=== PATIENT | male | born 1990 | race American Indian/Alaskan Native ===

== ENCOUNTER 2016-12-04 20:40 | Emergency (ER) | payer SELFPAY ==
[2016-12-04 21:13] VITALS: PULSE 84; RESP 18; TEMP 98; O2SAT 100
--- NOTE | 2016-12-04 21:43 | ED PDOC ---
HPI: Hypertension/Hypotension Time Seen by Provider: 12/04/16 21:18 Chief Complaint (Nursing): High Blood Pressure Chief Complaint (Provider): High Blood Pressure History Per: Patient History/Exam Limitations: no limitations Onset/Duration Of Symptoms: Days (noted today) Current Symptoms Are (Timing): Still Present Quality Of Symptoms: Asymptomatic Additional Complaint(s): Thompson Londono is a 26 year old male, with a past medical history inclusive of HTN, who presents to the ED on 12/04/16 for the evaluation of elevated blood pressure that had been noted during a routine Clinic visit today where it had been recorded as >200mmHg systolic. Patient is asymptomatic at present and explicitly denies headache, chest pain, shortness of breath or abdominal pain. He reports a strong history of HTN on his father's side and that he had previously taken both Norvasc and Hydrochlorothiozide as a teenager, which he further admits to self-discontinuing secondary to experienced side-effects. PMD: Clinic Past Medical History Reviewed: Historical Data, Nursing Documentation, Vital Signs Vital Signs: Last Vital Signs Temp 98.0 F 12/04/16 21:09 Pulse 84 12/04/16 21:09 Resp 18 12/04/16 21:09 BP 182/119 H 12/04/16 21:09 Pulse Ox 100 12/04/16 21:09 - Medical History PMH: HTN - Surgical History Surgical History: No Surg Hx - Family History Family History: States: Hypertension (strong on father's side) - Social History Current smoker - smoking cessation education provided: No Alcohol: None Drugs: Denies - Immunization History Hx Tetanus Toxoid Vaccination: No Hx Influenza Vaccination: No Hx Pneumococcal Vaccination: No - Home Medications Home Medications: Ambulatory Orders Medication Instructions Recorded Doxycycline [Adoxa] 100 mg PO BID #14 tab 05/20/15 Griseofulvin Microsize [Grifulvin 500 mg PO DAILY #60 tab 05/20/15 V] Hydrochlorothiazide 12.5 mg PO DAILY #30 cap 05/20/15 amLODIPine [Norvasc] 5 mg PO DAILY #30 tab 12/04/16 hydroCHLOROthiazide [Hydrodiuril] 25 mg PO DAILY #30 tab 12/04/16 - Allergies Allergies/Adverse Reactions: Allergies Allergy/AdvReac Type Severity Reaction Status Date / Time No Known Allergies Allergy Verified 05/20/15 13:44 Review of Systems ROS Statement: Except As Marked, All Systems Reviewed And Found Negative Cardiovascular: Positive for: Other (elevated blood pressure). Negative for: Chest Pain Respiratory: Negative for: Shortness of Breath Gastrointestinal: Negative for: Abdominal Pain Neurological: Negative for: Headache Physical Exam - Reviewed Nursing Documentation Reviewed: Yes Vital Signs Reviewed: Yes - Physical Exam Appears: Positive for: Non-toxic, No Acute Distress Head Exam: Positive for: ATRAUMATIC, NORMOCEPHALIC Skin: Positive for: Normal Color, Warm, Dry Eye Exam: Positive for: Normal appearance, PERRL Neck: Positive for: Normal, Painless ROM, Supple Cardiovascular/Chest: Positive for: Regular Rate, Rhythm. Negative for: Murmur Respiratory: Positive for: Normal Breath Sounds. Negative for: Respiratory Distress Gastrointestinal/Abdominal: Positive for: Normal Exam, Soft. Negative for: Tenderness Back: Positive for: Normal Inspection Neurologic/Psych: Positive for: Alert, Oriented - Laboratory Results Result Diagrams: 12/04/16 21:51 12/04/16 21:38 - ECG O2 Sat by Pulse Oximetry: 100 (RA) Pulse Ox Interpretation: Normal Medical Decision Making Medical Decision Makin:18 Initial Impression: elevated blood pressure; will r/o end organ damage and re- start patient on blood pressure medication regimen Initial Plan: * EKG * Labs * Troponin I * Udip * Reevaluation 2250: Pt. remains asymptomatic, talked in length about need for proper BP control, prescribed pt. norvasc and HCTZ, told to check BP tomorrow and keep diary. Told to return for CP, SOB, HERNANDEZ, weakness, or other concerning symptoms and to f/u at [facility] this week for checkup. Scribe Attestation: Documented by Emerald Kumar, acting as a scribe for Hosea Wiseman MD. Provider Scribe Attestation: All medical record entries made by the Scribe were at my direction and personally dictated by me. I have reviewed the chart and agree that the record accurately reflects my personal performance of the history, physical exam, medical decision making, and the department course for this patient. I have also personally directed, reviewed, and agree with the discharge instructions and disposition. Disposition - Clinical Impression Clinical Impression: Hypertension - Disposition Referrals: [facility] [Outside] Disposition Time: 22:51 Condition: STABLE Additional Instructions: Please return to the ER if you're BP is not controlled with the medications prescribed. Be on the lookout for concerning symptoms such as severe headache, chest pain, shortness of breath, or other concerning symptoms. Prescriptions: amLODIPine [Norvasc] 5 mg PO DAILY #30 tab hydroCHLOROthiazide [Hydrodiuril] 25 mg PO DAILY #30 tab Instructions: Hypertension (ED), Hypertensive Crisis (ED)
[2016-12-04 21:55] LABS: BASO # 0.1 K/uL (0.0-0.2); BASO % 1.3 % (0.0-2.0); EOS % 0.6 % (0.0-4.0); HEMATOCRIT 39.6 % (35.0-51.0); LYMPH # 2.9 K/uL (1.0-4.3); LYMPH % 36.3 % (20.0-40.0); MEAN CORPUSCULAR HGB CONC 32.5 g/dL (33.0-37.0); MEAN PLATELET VOLUME 7.5 fl (7.2-11.7); MONO # 0.7 K/uL (0.0-0.8); MONO % 9.3 % (0.0-10.0); NEUT # 4.2 K/uL (1.8-7.0); NEUT % 52.5 % (50.0-75.0); NRBC % 0.1 % (0.0-0.0); RED CELL DISTRIBUTION WIDTH 13.6 % (11.5-14.5)
[2016-12-04 22:33] LABS: BLOOD UREA NITROGEN 13 mg/dl (9-20); CALCIUM 9.4 mg/dL (8.4-10.2); CARBON DIOXIDE 28 mmol/L (22-30); CHLORIDE 99 mmol/L (98-107); GFR AFRICAN-AMERICAN > 60; GLUCOSE,RANDOM 106 mg/dL (75-110); POTASSIUM 4.3 MMOL/L (3.6-5.0); SODIUM 138 mmol/l (132-148)
[2016-12-04 22:46] VITALS: BP 186/119
--- NOTE | 2016-12-05 08:42 | CARD ---
APPROVED REPORT EKG Measurement Heart [id number] <Conclusion> Normal sinus rhythm Nonspecific T wave abnormality Abnormal ECG
== END 2016-12-04 22:54 | disposition home or self-care (01) ==
LOC: H.ER 20:40
DX: I10 Essential (primary) hypertension (principal)

== ENCOUNTER 2017-07-06 17:33 | Emergency (ER) | payer OTHER ==
[2017-07-06 17:40] VITALS: BP 179/102; PULSE 104; RESP 18; TEMP 98.2; O2SAT 100
--- NOTE | 2017-07-06 17:59 | ED PDOC ---
Lower Extremity Pain/Injury Time Seen by Provider: 07/06/17 17:47 Chief Complaint (Nursing): Lower Extremity Problem/Injury Chief Complaint (Provider): Right Knee Pain History Per: Patient History/Exam Limitations: no limitations Onset/Duration Of Symptoms: Other (x 3 weeks) Current Symptoms Are (Timing): Still Present Additional Complaint(s): Thompson is a 27 year old male who presents to the Emergency Department complaining of right knee pain for the past 3 weeks. Denies falling, trauma, and exercise that would cause right knee pain. PMD: No Family Provider Past Medical History Reviewed: Historical Data, Nursing Documentation, Vital Signs Vital Signs: Last Vital Signs Temp 98.2 F 07/06/17 17:35 Pulse 104 H 07/06/17 17:35 Resp 18 07/06/17 17:35 BP 179/102 H 07/06/17 17:35 Pulse Ox 100 07/06/17 17:35 - Medical History PMH: HTN - Family History Family History: States: Hypertension (strong on father's side) - Immunization History Hx Tetanus Toxoid Vaccination: No Hx Influenza Vaccination: No Hx Pneumococcal Vaccination: No - Home Medications Home Medications: Ambulatory Orders Medication Instructions Recorded Doxycycline [Adoxa] 100 mg PO BID #14 tab 05/20/15 Griseofulvin Microsize [Grifulvin 500 mg PO DAILY #60 tab 05/20/15 V] Hydrochlorothiazide 12.5 mg PO DAILY #30 cap 05/20/15 amLODIPine [Norvasc] 5 mg PO DAILY #30 tab 12/04/16 hydroCHLOROthiazide [Hydrodiuril] 25 mg PO DAILY #30 tab 12/04/16 Naproxen 1 tab PO Q12 PRN #14 tab 07/06/17 amLODIPine [Norvasc] 5 mg PO DAILY #15 tab 07/06/17 - Allergies Allergies/Adverse Reactions: Allergies Allergy/AdvReac Type Severity Reaction Status Date / Time No Known Allergies Allergy Verified 05/20/15 13:44 Review of Systems ROS Statement: Except As Marked, All Systems Reviewed And Found Negative Musculoskeletal: Positive for: Other (Right Knee Pain) Physical Exam - Reviewed Nursing Documentation Reviewed: Yes Vital Signs Reviewed: Yes - Physical Exam Appears: Positive for: Non-toxic Head Exam: Positive for: ATRAUMATIC, NORMAL INSPECTION, NORMOCEPHALIC Eye Exam: Positive for: Normal appearance Neck: Positive for: Normal Respiratory: Positive for: Normal Breath Sounds. Negative for: Respiratory Distress Extremity: Positive for: Other (Mild Effusion noted right knee, Possible crepitus). Negative for: Tenderness (no bony tenderness - right knee) Neurologic/Psych: Positive for: Alert, Oriented - ECG O2 Sat by Pulse Oximetry: 100 (RA) Pulse Ox Interpretation: Normal - Progress ED Course And Treament: xry of knee: wnl Patient states he has h/o HTN but has been noncompliant on medications. States he was previously on norvasc daily. Placed in knee immobilizer and given crutch instructions. Medical Decision Making Medical Decision Making: Time: 17:47 Plan: - Right Knee X-Ray Time: 18:27 - Discussed results with patients. Upon provider evaluation patient is medically stable, and requires no further treatment in the ED at this time. Patient will be discharged with Rx for Naproxen and Norvasc. Counseling was provided and all questions were answered regarding diagnosis and need for follow up with the local clinic. There is agreement to discharge plan. Return if symptoms persist or worsen. Scribe Attestation: Documented by Robert Solorzano, acting as a scribe for Cl Lopez PA-C Provider Scribe Attestation: All medical record entries made by the Scribe were at my direction and personally dictated by me. I have reviewed the chart and agree that the record accurately reflects my personal performance of the history, physical exam, medical decision making, and the department course for this patient. I have also personally directed, reviewed, and agree with the discharge instructions and disposition. Disposition - Clinical Impression Clinical Impression: Knee injury - Patient ED Disposition Is Patient to be Admitted: No - Disposition Referrals: [facility] [Outside] Ishan Adams MD [Staff Provider] - FAMILY PROVIDER,NO [Primary Care Provider] - Disposition: Routine/Home Disposition Time: 18:27 Condition: FAIR Prescriptions: amLODIPine [Norvasc] 5 mg PO DAILY #15 tab Naproxen 1 tab PO Q12 PRN #14 tab PRN Reason: Pain, Moderate (4-7) Instructions: Knee Pain (ED) Forms: [facility] [facility] (Faroese), [facility] School/Work Excuse
--- NOTE | 2017-07-07 07:10 | RAD ---
PROCEDURE: Right Knee Radiographs. HISTORY: KNEE PAIN COMPARISON: None. FINDINGS: BONES: Normal. No fracture. JOINTS: Normal. No osteoarthritis. JOINT EFFUSION: None. OTHER FINDINGS: None. IMPRESSION: Normal radiographs of the right knee.
== END 2017-07-06 18:48 | disposition home or self-care (01) ==
LOC: SUPCPDRO 17:33 → H.ER 17:33
DX: M25.561 Pain in right knee (principal); I10 Essential (primary) hypertension